=== PATIENT | female | born 1990 | race Caucasian/White ===

== ENCOUNTER 2017-02-23 22:39 | Emergency (ER) | payer MEDICARE | END 2017-02-23 23:38 | disposition home or self-care (01) | LOC: D.ER 22:39 | DX: S61.301A Unspecified open wound of left index finger with damage to nail, initial encounter (principal); X58.XXXA Exposure to other specified factors, initial encounter; Y93.89 Activity, other specified; Y92.018 Other place in single-family (private) house as the place of occurrence of the external cause ==